=== PATIENT | male | born 1995 | race Two or more races ===

== ENCOUNTER 2017-08-19 23:57 | Emergency (ER) | payer MEDICAID ==
[~2017-08-19] VITALS: Ht 170.2 cm; Wt 68.0 kg
--- NOTE | 2017-08-20 02:30 | NUR ---
PATIENT CAME FROM HOME WITH HIS MOTHER FOR SUTURE REMOVAL . PATIENT AAOX4/AMEX4. NO RESPIRATORY DISTRESS NOTED . RIGHT LOWER QUADRANT OF THE ABDOMEN WITH WOUND .CDI .HEALING WELL DRY WITH 6 SUTURES IN PLACED , PER PATIENT ITS BEEN A WEEK NOW AND SUTURES NEED TO BE REMOVED .
[2017-08-20] MEDS ORDERED: HYDROCO/APAP TAB 5-325MG (02:35)
--- NOTE | 2017-08-20 03:45 | NUR ---
REMOVED SUTURES ABOUT 5 SUTURES FROM THE RIGHT LOWER QUADRANT OF THE ABDOMEN .DONE ASEPTICALLY .ROSLEIA . NO NEED FOR DRESSING PER HENRIETTA CORDOVA .
== END 2017-08-20 04:50 | disposition home or self-care (01) ==
LOC: ER 08-20 00:03
DX: Z48.02 Encounter for removal of sutures (principal); J45.909 Unspecified asthma, uncomplicated; Z79.899 Other long term (current) drug therapy
CPT/HCPCS: A4663

== ENCOUNTER 2017-12-18 17:05 | Emergency (ER) | payer MEDICAID ==
[~2017-12-18] VITALS: Ht 170.2 cm; Wt 68.0 kg
[~2017-12-18 17:05] MED LIST: HYDROCO/APAP TAB 5-325MG
[2017-12-18] MEDS ORDERED: DICYCLOMINE HCL 20 MG/2 ML AMPUL IM SCH (17:30)
[2017-12-18] MEDS ORDERED: ONDANSETRON 4 MG/2 ML VIAL IV ONE ×2 (17:30→19:00)
[2017-12-18] MEDS ORDERED: IV NORMAL SALINE 1000 ML BAG IV ONE (17:30)
[2017-12-18] MEDS ORDERED: ONDANSETRON 4 MG/2 ML VIAL ONE ×2 (17:38→18:51)
[2017-12-18 17:42] LABS: BASOPHILS % (AUTO) 0.3 % (0.0-2.0); HEMATOCRIT 45.1 % (36.7-47.1); HEMOGLOBIN 15.9 g/dL (12.5-16.3); LYMPHOCYTES # (AUTO) 0.3 K/uL (20.0-40.0); LYMPHOCYTES % (AUTO) 3.1 % (20.5-74.5); MEAN CORPUSCULAR HEMOGLOBIN 31.6 uug (23.8-33.4); MEAN CORPUSCULAR HGB CONC 35 g/dL (32.5-36.3); MEAN CORPUSCULAR VOLUME 89.5 fL (73.0-96.2); MONOCYTES # (AUTO) 0.2 K/uL (2.0-10.0); MONOCYTES % (AUTO) 1.7 % (0-11); NEUTROPHILS # (AUTO) 8.4 K/uL (1.8-8.9); NEUTROPHILS % (AUTO) 94.9 % (31.5-64.5); PLATELET COUNT (AUTO) 350 K/uL (152-348); RED BLOOD CELL COUNT(AUTO) 5.04 MIL/uL (4.06-5.63); WHITE BLOOD COUNT (AUTO) 8.9 K/uL (3.6-10.2)
[2017-12-18 17:52] LABS: POTASSIUM 3.2 mmol/L (3.5-5.1)
[2017-12-18 17:58] LABS: BILIRUBIN,DIRECT 0.3 mg/dL (0.0-0.2); BILIRUBIN,TOTAL 1.7 mg/dL (0.2-1.0); TOTAL PROTEIN, SERUM 9.5 g/dL (6.4-8.2)
[2017-12-18] MEDS ORDERED: POTASSIUM CHLORIDE 20 MEQ POWDER PACKET ONE (18:32)
--- NOTE | 2017-12-18 18:52 | NUR ---
Patient discharged to home in stable conditon with mother. Written and verbal after care instructions given. Patient verbalizes understanding of instructions. Stressed follow up or return to ER for worsening s/s.
[2017-12-18] MEDS ORDERED: POTASSIUM CHLORIDE 20 MEQ TAB.PRT.SR PO ONE (19:00)
== END 2017-12-18 18:56 | disposition home or self-care (01) ==
LOC: ER 17:07
DX: R11.10 Vomiting, unspecified (principal); R19.7 Diarrhea, unspecified; R10.9 Unspecified abdominal pain; J45.909 Unspecified asthma, uncomplicated
CPT/HCPCS: 36415; 83690; 85025; A4663; J0500; J2405; J7030

== ENCOUNTER 2018-02-08 14:18 | Emergency (ER) | payer MEDICAID, OTHER ==
[~2018-02-08] VITALS: Ht 172.7 cm; Wt 68.0 kg
[2018-02-08] MEDS ORDERED: IV NORMAL SALINE 1000 ML BAG IV ONE ×2 (14:30→15:30)
[2018-02-08] MEDS ORDERED: ONDANSETRON 4 MG/2 ML VIAL IV ONE (14:30)
[2018-02-08 14:47] LABS: BASOPHILS % (AUTO) 0.2 % (0.0-2.0); EOSINOPHILS % (AUTO) 0.1 % (0.0-7.0); HEMOGLOBIN 13.5 g/dL (12.5-16.3); LYMPHOCYTES # (AUTO) 0.5 K/uL (20.0-40.0); LYMPHOCYTES % (AUTO) 2.7 % (20.5-74.5); MEAN CORPUSCULAR HEMOGLOBIN 31.1 uug (23.8-33.4); MEAN CORPUSCULAR HGB CONC 35 g/dL (32.5-36.3); MEAN CORPUSCULAR VOLUME 90.2 fL (73.0-96.2); MONOCYTES # (AUTO) 0.7 K/uL (2.0-10.0); MONOCYTES % (AUTO) 3.7 % (0-11); NEUTROPHILS # (AUTO) 18.3 K/uL (1.8-8.9); NEUTROPHILS % (AUTO) 93.3 % (31.5-64.5); PLATELET COUNT (AUTO) 334 K/uL (152-348); RED BLOOD CELL COUNT(AUTO) 4.32 MIL/uL (4.06-5.63); WHITE BLOOD COUNT (AUTO) 19.6 K/uL (3.6-10.2)
[2018-02-08] MEDS ORDERED: ONDANSETRON 4 MG/2 ML VIAL ONE ×2 (14:49→15:06)
[2018-02-08 14:51] LABS: CREATININE 1.1 mg/dL (0.6-1.3)
[2018-02-08 14:55] LABS: POTASSIUM 2.8 mmol/L (3.5-5.1)
--- NOTE | 2018-02-08 14:55 | NUR ---
Pt. walked in w/ Mom c/o n/v after eating pizza and [employer], put in room 5A
[2018-02-08 14:57] LABS: BILIRUBIN,DIRECT 0.2 mg/dL (0.0-0.2); BILIRUBIN,TOTAL 0.7 mg/dL (0.2-1.0); TOTAL PROTEIN, SERUM 8.1 g/dL (6.4-8.2)
[2018-02-08] MEDS ORDERED: POTASSIUM CHLORIDE 20 MEQ TAB.PRT.SR PO ONE (15:00)
[2018-02-08] MEDS ORDERED: POTASSIUM CHLORIDE 20 MEQ POWDER PACKET ONE (15:06)
[2018-02-08] MEDS ORDERED: ONDANSETRON IV *ER 4 MG/2 ML VIAL IV ONE (15:15)
[2018-02-08] MEDS ORDERED: METOCLOPRAMIDE HCL 10 MG/2 ML VIAL ONE ×2 (15:51→16:07)
[2018-02-08] MEDS ORDERED: METOCLOPRAMIDE HCL 10 MG/2 ML VIAL IV ONE (16:00)
[2018-02-08] MEDS ORDERED: KETOROLAC TROMETHAMINE 30 MG INJ ONE (16:07)
[2018-02-08] MEDS ORDERED: MORPHINE SULFATE 4 MG/1 ML DISP.SYRIN IV ONE (16:15)
[2018-02-08] MEDS ORDERED: POTASSIUM CHLORIDE 100 ML ONE (16:17)
[2018-02-08] MEDS ORDERED: MORPHINE SULFATE 4 MG/1 ML DISP.SYRIN ONE (16:18)
[2018-02-08] MEDS: POTASSIUM CHLORIDE 50 ML IV SCH ×2 (16:35→17:29)
--- NOTE | 2018-02-08 18:30 | NUR ---
Patient discharged to home in stable conditon. Written and verbal after care instructions given. Patient verbalizes understanding of instructions.
[2018-02-08 18:58] VITALS: BP 130/80
== END 2018-02-08 18:35 | disposition home or self-care (01) ==
LOC: ER 14:18
DX: T62.91XA Toxic effect of unspecified noxious substance eaten as food, accidental (unintentional), initial encounter (principal); J45.909 Unspecified asthma, uncomplicated; Y92.89 Other specified places as the place of occurrence of the external cause
CPT/HCPCS: 36415; 80048; 80076; 83690; 85025; 96361; 96365; 96375; 99285; J1885; J2270; J2405 ×2; J2765 ×2; J3480; A4663; J7030; J7050

== ENCOUNTER 2018-02-10 14:33 | Emergency (ER) | payer MEDICAID ==
[~2018-02-10] VITALS: Ht 167.6 cm; Wt 68.0 kg
[2018-02-10] MEDS ORDERED: HYDROMORPHONE 1 MG/1 ML DISP.SYRIN IV ONE (14:45)
[2018-02-10] MEDS ORDERED: ONDANSETRON 4 MG/2 ML VIAL IV ONE (14:45)
[2018-02-10] MEDS ORDERED: IV NORMAL SALINE 1000 ML BAG IV ONE (14:45)
[2018-02-10] MEDS ORDERED: ONDANSETRON 4 MG/2 ML VIAL ONE ×2 (14:46→15:28)
[2018-02-10] MEDS ORDERED: HYDROMORPHONE 1 MG/1 ML DISP.SYRIN ONE (14:46)
[2018-02-10 15:07] LABS: BASOPHILS % (AUTO) 0.3 % (0.0-2.0); EOSINOPHILS % (AUTO) 0.1 % (0.0-7.0); HEMATOCRIT 39.4 % (36.7-47.1); HEMOGLOBIN 13.9 g/dL (12.5-16.3); LYMPHOCYTES # (AUTO) 0.5 K/uL (20.0-40.0); MEAN CORPUSCULAR HEMOGLOBIN 31.5 uug (23.8-33.4); MEAN CORPUSCULAR HGB CONC 35 g/dL (32.5-36.3); MEAN CORPUSCULAR VOLUME 89.1 fL (73.0-96.2); MONOCYTES # (AUTO) 0.2 K/uL (2.0-10.0); MONOCYTES % (AUTO) 1.9 % (0-11); NEUTROPHILS # (AUTO) 9.2 K/uL (1.8-8.9); NEUTROPHILS % (AUTO) 92.7 % (31.5-64.5); PLATELET COUNT (AUTO) 304 K/uL (152-348); RED BLOOD CELL COUNT(AUTO) 4.42 MIL/uL (4.06-5.63); WHITE BLOOD COUNT (AUTO) 9.9 K/uL (3.6-10.2)
[2018-02-10 15:09] LABS: CREATININE 0.9 mg/dL (0.6-1.3); POTASSIUM 2.9 mmol/L (3.5-5.1)
[2018-02-10 15:15] LABS: BILIRUBIN,DIRECT 0.3 mg/dL (0.0-0.2); BILIRUBIN,TOTAL 1.1 mg/dL (0.2-1.0); TOTAL PROTEIN, SERUM 7.8 g/dL (6.4-8.2)
[2018-02-10] MEDS ORDERED: POTASSIUM CHLORIDE 20 MEQ TAB.PRT.SR ONE (15:28)
[2018-02-10] MEDS ORDERED: ONDANSETRON IV *ER 4 MG/2 ML VIAL IV ONE (15:30)
[2018-02-10] MEDS ORDERED: POTASSIUM CHLORIDE 20 MEQ TAB.PRT.SR PO ONE (15:30)
--- NOTE | 2018-02-10 16:52 | NUR ---
Patient discharged to home in stable conditon. Written and verbal after care instructions given. Patient verbalizes understanding of instructions.pt walks in steady gait. pt says feels better. pt accompanied by mother.
[2018-02-10 16:53] VITALS: BP 146/87
== END 2018-02-10 16:54 | disposition home or self-care (01) ==
LOC: ER 14:33
DX: K52.9 Noninfective gastroenteritis and colitis, unspecified (principal); E87.6 Hypokalemia; J45.909 Unspecified asthma, uncomplicated
CPT/HCPCS: 36415; 74176; 80048; 80076; 83690; 85025; 96361; 96374; 96375; 96376; 99285; J1170; J2405 ×2; A4663; J7030

== ENCOUNTER 2018-02-12 13:06 | Emergency (ER) | payer MEDICAID ==
[~2018-02-12] VITALS: Ht 167.6 cm; Wt 68.0 kg
--- NOTE | 2018-02-12 13:23 | NUR ---
PATIENT WAITING IN ROOM C/O N/V AND DIARRHEA X5DAYS WITH WORSENING PAIN.
--- NOTE | 2018-02-12 13:31 | NUR ---
DOCTOR LOPEZ IN THE ROOM TO SEE PATIENT.
[2018-02-12] MEDS ORDERED: CAPSAICIN 0.025% CREAM 56.6 GM TUBE TP ONE (13:41)
[2018-02-12] MEDS ORDERED: IV NORMAL SALINE 1000 ML BAG IV ONE (13:45)
[2018-02-12] MEDS ORDERED: KETOROLAC TROMETHAMINE 30 MG INJ IVP ONE (13:45)
[2018-02-12] MEDS ORDERED: MISCELLANEOUS MED XX ONE (13:45)
[2018-02-12] MEDS ORDERED: ONDANSETRON 4 MG/2 ML VIAL IV ONE (13:45)
[2018-02-12] MEDS ORDERED: KETOROLAC TROMETHAMINE 30 MG INJ ONE (13:49)
[2018-02-12] MEDS ORDERED: ONDANSETRON 4 MG/2 ML VIAL ONE (13:49)
[2018-02-12 14:01] LABS: BASOPHILS % (AUTO) 0.4 % (0.0-2.0); HEMATOCRIT 40.7 % (36.7-47.1); HEMOGLOBIN 14.5 g/dL (12.5-16.3); LYMPHOCYTES # (AUTO) 0.5 K/uL (20.0-40.0); LYMPHOCYTES % (AUTO) 5.8 % (20.5-74.5); MEAN CORPUSCULAR HEMOGLOBIN 31.9 uug (23.8-33.4); MEAN CORPUSCULAR HGB CONC 36 g/dL (32.5-36.3); MEAN CORPUSCULAR VOLUME 89.5 fL (73.0-96.2); MONOCYTES # (AUTO) 0.1 K/uL (2.0-10.0); MONOCYTES % (AUTO) 1.5 % (0-11); NEUTROPHILS # (AUTO) 7.4 K/uL (1.8-8.9); NEUTROPHILS % (AUTO) 92.3 % (31.5-64.5); PLATELET COUNT (AUTO) 314 K/uL (152-348); RED BLOOD CELL COUNT(AUTO) 4.54 MIL/uL (4.06-5.63)
[2018-02-12 14:13] LABS: BILIRUBIN,DIRECT 0.2 mg/dL (0.0-0.2); CREATININE 0.9 mg/dL (0.6-1.3); POTASSIUM 3.3 mmol/L (3.5-5.1); TOTAL PROTEIN, SERUM 8.1 g/dL (6.4-8.2)
--- NOTE | 2018-02-12 14:16 | NUR ---
PATIENT C/O OF BURNING SENSATION, STATES IT IS INTOLERABLE. PATIENT REMOVED CREAM AND THE MOTHER AT BEDSIDE WAS FOUND RUBBING HAND SANTIZER TO THE ABDOMEN.
--- NOTE | 2018-02-12 15:51 | NUR ---
PATIENT GIVEN DISCHARGE INSTRUCTION AND PRESCRIPTIONS. REFER TO SPECIALIST ALSO GIVEN WITH DISCHARGE INSTRUCTIONS
== END 2018-02-12 15:53 | disposition home or self-care (01) ==
LOC: ER 13:06
DX: R10.84 Generalized abdominal pain (principal); R11.2 Nausea with vomiting, unspecified; J45.909 Unspecified asthma, uncomplicated; F12.10 Cannabis abuse, uncomplicated
CPT/HCPCS: 76705; 80048; 80076; 83690; 85025; 96361; 96374; 96375; 99285; J1885; J2405; A4663; A9150; J7030

== ENCOUNTER 2018-03-10 17:59 | Emergency (ER) | payer MEDICAID ==
[~2018-03-10] VITALS: Ht 170.2 cm; Wt 68.0 kg
[2018-03-10] MEDS ORDERED: MORPHINE SULFATE 2 MG/1 ML DISP.SYRIN IV ONE (18:45)
[2018-03-10] MEDS ORDERED: ONDANSETRON 4 MG/2 ML VIAL IV ONE (18:45)
[2018-03-10] MEDS ORDERED: IV NORMAL SALINE 1000 ML BAG IV ONE (18:45)
--- NOTE | 2018-03-10 18:53 | NUR ---
PT IS IN ROOM #2B. DR ORDOÑEZ EVALUATED THE PT.
[2018-03-10] MEDS ORDERED: ONDANSETRON 4 MG/2 ML VIAL ONE (18:58)
[2018-03-10] MEDS ORDERED: MORPHINE SULFATE 2 MG/1 ML DISP.SYRIN ONE (18:58)
[2018-03-10 19:02] LABS: BASOPHILS % (AUTO) 0.2 % (0.0-2.0); HEMATOCRIT 41.7 % (36.7-47.1); HEMOGLOBIN 14.3 g/dL (12.5-16.3); LYMPHOCYTES # (AUTO) 0.2 K/uL (20.0-40.0); LYMPHOCYTES % (AUTO) 1.9 % (20.5-74.5); MEAN CORPUSCULAR HEMOGLOBIN 31.2 uug (23.8-33.4); MEAN CORPUSCULAR HGB CONC 34 g/dL (32.5-36.3); MEAN CORPUSCULAR VOLUME 91.2 fL (73.0-96.2); MONOCYTES # (AUTO) 0.2 K/uL (2.0-10.0); MONOCYTES % (AUTO) 1.8 % (0-11); NEUTROPHILS # (AUTO) 11.7 K/uL (1.8-8.9); NEUTROPHILS % (AUTO) 96.1 % (31.5-64.5); PLATELET COUNT (AUTO) 316 K/uL (152-348); RED BLOOD CELL COUNT(AUTO) 4.57 MIL/uL (4.06-5.63); WHITE BLOOD COUNT (AUTO) 12.1 K/uL (3.6-10.2)
[2018-03-10 19:10] LABS: CREATININE 0.9 mg/dL (0.6-1.3); POTASSIUM 3.7 mmol/L (3.5-5.1)
[2018-03-10 19:15] LABS: BILIRUBIN,DIRECT 0.2 mg/dL (0.0-0.2); BILIRUBIN,TOTAL 0.7 mg/dL (0.2-1.0); TOTAL PROTEIN, SERUM 8.8 g/dL (6.4-8.2)
--- NOTE | 2018-03-10 19:31 | NUR ---
PATIENT STATES FEELS A LOT BETTER THAN COMING IN [place]. MD NOTIFIFED, PO CHALLENGE DONE. TOLERATED LIQUIDS WELL.
[2018-03-10 20:12] VITALS: BP 139/82
--- NOTE | 2018-03-10 20:12 | NUR ---
Patient discharged to home in stable conditon. Written and verbal after care instructions given. Patient verbalizes understanding of instructions. PATIENT LEFT WITH STABLE GAIT.
== END 2018-03-10 20:13 | disposition home or self-care (01) ==
LOC: ER 18:03
DX: K52.9 Noninfective gastroenteritis and colitis, unspecified (principal); J45.909 Unspecified asthma, uncomplicated
CPT/HCPCS: 36415; 80048; 80076; 83690; 85025; 96361; 96374; 96375; 99283; J2270; J2405; A4663; J7030

== ENCOUNTER 2018-03-12 02:43 | Emergency (ER) | payer MEDICAID ==
[~2018-03-12] VITALS: Ht 170.2 cm; Wt 68.0 kg
[2018-03-12] MEDS ORDERED: ONDANSETRON 4 MG/2 ML VIAL ONE (03:14)
[2018-03-12] MEDS: ONDANSETRON 4 MG/2 ML VIAL IV ONE (03:20)
[2018-03-12] MEDS: IV NORMAL SALINE 1000 ML BAG IV ONE (03:20)
--- NOTE | 2018-03-12 03:20 | NUR ---
Seen by . Saline lock placed. New orders noted. Zofran administered. IV fluids initiatedd
[2018-03-12 03:30] LABS: POTASSIUM 3.5 mmol/L (3.5-5.1)
[2018-03-12 03:32] LABS: BASOPHILS % (AUTO) 0.4 % (0.0-2.0); EOSINOPHILS % (AUTO) 0.2 % (0.0-7.0); HEMATOCRIT 40.3 % (36.7-47.1); HEMOGLOBIN 14.5 g/dL (12.5-16.3); LYMPHOCYTES # (AUTO) 1.2 K/uL (20.0-40.0); LYMPHOCYTES % (AUTO) 15.8 % (20.5-74.5); MEAN CORPUSCULAR HEMOGLOBIN 31.9 uug (23.8-33.4); MEAN CORPUSCULAR HGB CONC 36 g/dL (32.5-36.3); MEAN CORPUSCULAR VOLUME 88.8 fL (73.0-96.2); MONOCYTES # (AUTO) 0.5 K/uL (2.0-10.0); MONOCYTES % (AUTO) 6.4 % (0-11); NEUTROPHILS # (AUTO) 5.7 K/uL (1.8-8.9); NEUTROPHILS % (AUTO) 77.2 % (31.5-64.5); PLATELET COUNT (AUTO) 308 K/uL (152-348); RED BLOOD CELL COUNT(AUTO) 4.54 MIL/uL (4.06-5.63); WHITE BLOOD COUNT (AUTO) 7.4 K/uL (3.6-10.2)
[2018-03-12 03:36] LABS: BILIRUBIN,DIRECT 0.3 mg/dL (0.0-0.2); BILIRUBIN,TOTAL 1.1 mg/dL (0.2-1.0); TOTAL PROTEIN, SERUM 8.5 g/dL (6.4-8.2)
[2018-03-12] MEDS ORDERED: KETOROLAC TROMETHAMINE 30 MG INJ ONE (03:59)
[2018-03-12] MEDS: KETOROLAC TROMETHAMINE 30 MG INJ IVP ONE (04:09)
[2018-03-12 04:21] VITALS: BP 144/83
== END 2018-03-12 04:30 | disposition home or self-care (01) ==
LOC: ER 02:45
DX: R10.84 Generalized abdominal pain (principal); R11.10 Vomiting, unspecified; R19.7 Diarrhea, unspecified; J45.909 Unspecified asthma, uncomplicated
CPT/HCPCS: 36415; 80048; 80076; 85025; 96361; 96374; 96375; 99283; J1885; J2405; A4663; J7030

== ENCOUNTER 2018-05-25 16:51 | Emergency (ER) | payer MEDICAID ==
[~2018-05-25] VITALS: Ht 170.2 cm; Wt 68.0 kg
[2018-05-25] MEDS: IV NORMAL SALINE 1000 ML BAG IV ONE (17:32)
[2018-05-25] MEDS ORDERED: ONDANSETRON 4 MG/2 ML VIAL ONE ×2 (17:34→17:38)
[2018-05-25] MEDS ORDERED: PANTOPRAZOLE SODIUM 40 MG VIAL ONE (17:35)
[2018-05-25] MEDS: PANTOPRAZOLE SODIUM 40 MG VIAL IV ONE (17:37)
[2018-05-25] MEDS: ONDANSETRON 4 MG/2 ML VIAL IV ONE (17:37)
--- NOTE | 2018-05-25 18:12 | NUR ---
Patient discharged to home in stable conditon. Written and verbal after care instructions given. Patient verbalizes understanding of instructions.pt walks in steady gait. pt denies nausea or pain at this point. pt says feels better. pt accomanied by mother.
[2018-05-25 18:14] VITALS: BP 131/81
== END 2018-05-25 18:14 | disposition home or self-care (01) ==
LOC: ER 16:51
DX: A08.4 Viral intestinal infection, unspecified (principal); J45.909 Unspecified asthma, uncomplicated
CPT/HCPCS: 96361; 96374; 96375; 99283; C9113; J2405 ×2; A4663; J7030

== ENCOUNTER 2018-08-22 17:35 | Emergency (ER) | payer MEDICAID ==
[~2018-08-22] VITALS: Ht 170.2 cm; Wt 68.0 kg
[2018-08-22] MEDS ORDERED: IV NORMAL SALINE 1000 ML BAG IV ONE ×2 (18:00→20:30)
[2018-08-22] MEDS ORDERED: ONDANSETRON 4 MG/2 ML VIAL IV ONE (18:00)
[2018-08-22 18:06] LABS: BASOPHILS # (AUTO) 0.1 K/uL (0.0-8.0); BASOPHILS % (AUTO) 0.4 % (0.0-2.0); EOSINOPHILS % (AUTO) 0.1 % (0.0-7.0); HEMATOCRIT 42.8 % (36.7-47.1); HEMOGLOBIN 14.5 g/dL (12.5-16.3); LYMPHOCYTES # (AUTO) 1.5 K/uL (20.0-40.0); LYMPHOCYTES % (AUTO) 9.1 % (20.5-74.5); MEAN CORPUSCULAR HEMOGLOBIN 30.2 uug (23.8-33.4); MEAN CORPUSCULAR HGB CONC 34 g/dL (32.5-36.3); MONOCYTES # (AUTO) 0.6 K/uL (2.0-10.0); MONOCYTES % (AUTO) 3.5 % (0-11); NEUTROPHILS # (AUTO) 14.6 K/uL (1.8-8.9); NEUTROPHILS % (AUTO) 86.9 % (31.5-64.5); PLATELET COUNT (AUTO) 368 K/uL (152-348); RED BLOOD CELL COUNT(AUTO) 4.81 MIL/uL (4.06-5.63); WHITE BLOOD COUNT (AUTO) 16.9 K/uL (3.6-10.2)
[2018-08-22 18:14] LABS: POTASSIUM 3.2 mmol/L (3.5-5.1)
[2018-08-22 18:20] LABS: BILIRUBIN,DIRECT 0.2 mg/dL (0.0-0.2); BILIRUBIN,TOTAL 0.7 mg/dL (0.2-1.0); TOTAL PROTEIN, SERUM 8.8 g/dL (6.4-8.2)
[2018-08-22] MEDS ORDERED: ONDANSETRON 4 MG/2 ML VIAL ONE (18:33)
[2018-08-22] MEDS ORDERED: PANTOPRAZOLE SODIUM 40 MG VIAL IV ONE (18:45)
[2018-08-22] MEDS ORDERED: METOCLOPRAMIDE HCL 10 MG/2 ML VIAL IV ONE ×2 (18:45→19:45)
[2018-08-22] MEDS ORDERED: PANTOPRAZOLE SODIUM 40 MG VIAL ONE (18:49)
[2018-08-22] MEDS ORDERED: METOCLOPRAMIDE HCL 10 MG/2 ML VIAL ONE ×2 (18:49→20:05)
--- NOTE | 2018-08-22 18:54 | NUR ---
PATIENT WAS SEEN BY MD. HE HAS VOMITED 3 TIMES DURING STAY IN ER. MEDICATION GIVEN ORDERED.
--- NOTE | 2018-08-22 19:14 | NUR ---
HAND OFF REPORT GIVEN TO KEN MAURICIO
--- NOTE | 2018-08-22 19:19 | NUR ---
Received report from Delmy MAURICIO, assumed care of pt.,
[2018-08-22] MEDS ORDERED: PROCHLORPERAZINE EDISYLATE 10 MG/2 ML VIAL IV ONE (20:45)
[2018-08-22] MEDS ORDERED: diphenhydrAMINE 50 MG/1 ML VIAL IV ONE (20:45)
[2018-08-22] MEDS ORDERED: PROCHLORPERAZINE EDISYLATE 10 MG/2 ML VIAL ONE (20:56)
[2018-08-22] MEDS ORDERED: diphenhydrAMINE 50 MG/1 ML VIAL ONE (20:56)
--- NOTE | 2018-08-22 21:17 | NUR ---
Pt. up to use restroom, ambulates w/ steady gait,
--- NOTE | 2018-08-22 21:30 | NUR ---
Pt. given 5cc applejuice/water mix per Dr. Doss,
--- NOTE | 2018-08-22 21:55 | NUR ---
Patient discharged to home in stable conditon. Written and verbal after care instructions given. Patient verbalizes understanding of instructions. Pt. d/c w/ prescription per MD order, d/c papers signed, all belongings w/ pt., ID band/IV removed, ambulated off unit w/ steady gait, NAD
== END 2018-08-22 21:59 | disposition home or self-care (01) ==
LOC: ER 17:39
DX: R11.10 Vomiting, unspecified (principal); R10.9 Unspecified abdominal pain; E87.6 Hypokalemia; J45.909 Unspecified asthma, uncomplicated
CPT/HCPCS: 36415; 80048; 80076; 83690; 85025; 96361; 96374; 96375; 96376; 99283; C9113; J0780; J1200; J2405; J2765 ×2; A4663; J7030

== ENCOUNTER 2019-01-13 13:40 | Emergency (ER) | payer MEDICAID ==
[~2019-01-13] VITALS: Ht 167.6 cm; Wt 70.3 kg
[2019-01-13] MEDS ORDERED: ONDANSETRON 4 MG/2 ML VIAL ONE ×2 (14:37→15:23)
[2019-01-13] MEDS ORDERED: ONDA4TAB5 PO (14:41)
[2019-01-13] MEDS ORDERED: ONDANSETRON 4 MG/2 ML VIAL IV ONE ×2 (14:45→15:15)
[2019-01-13] MEDS ORDERED: IV NORMAL SALINE 1000 ML BAG IV ONE (14:45)
[2019-01-13 14:47] LABS: BASOPHILS # (AUTO) 0.1 K/uL (0.0-8.0); BASOPHILS % (AUTO) 0.6 % (0.0-2.0); EOSINOPHILS # (AUTO) 0.1 K/uL (0.0-0.7); EOSINOPHILS % (AUTO) 0.5 % (0.0-7.0); HEMATOCRIT 45.2 % (36.7-47.1); HEMOGLOBIN 14.9 g/dL (12.5-16.3); LYMPHOCYTES # (AUTO) 1.8 K/uL (20.0-40.0); LYMPHOCYTES % (AUTO) 10.8 % (20.5-51.5); MEAN CORPUSCULAR HEMOGLOBIN 30.4 uug (23.8-33.4); MEAN CORPUSCULAR HGB CONC 33 g/dL (32.5-36.3); MONOCYTES # (AUTO) 0.6 K/uL (2.0-10.0); MONOCYTES % (AUTO) 3.8 % (0.0-11.0); NEUTROPHILS # (AUTO) 14.3 K/uL (1.8-8.9); NEUTROPHILS % (AUTO) 84.3 % (38.5-71.5); PLATELET COUNT (AUTO) 379 K/uL (152-348); RED BLOOD CELL COUNT(AUTO) 4.91 MIL/uL (4.06-5.63)
[2019-01-13 14:58] LABS: POTASSIUM 3.2 mmol/L (3.5-5.1)
[2019-01-13 15:04] LABS: BILIRUBIN,DIRECT 0.2 mg/dL (0.0-0.2); BILIRUBIN,TOTAL 0.9 mg/dL (0.2-1.0); TOTAL PROTEIN, SERUM 8.7 g/dL (6.4-8.2)
[2019-01-13] MEDS ORDERED: PANTOPRAZOLE SODIUM 40 MG VIAL IV ONE (15:15)
[2019-01-13] MEDS ORDERED: HYDROMORPHONE 1 MG/1 ML DISP.SYRIN ONE (15:15)
[2019-01-13] MEDS ORDERED: HYDROMORPHONE 1 MG/1 ML DISP.SYRIN IV ONE (15:15)
[2019-01-13] MEDS ORDERED: PANTOPRAZOLE SODIUM 40 MG VIAL ONE (15:26)
--- NOTE | 2019-01-13 16:27 | NUR ---
Patient discharged to home in stable conditon. Written and verbal after care instructions given. Patient verbalizes understanding of instructions.pt walks i nsteady gait. pt not driving.
[2019-01-13 16:29] VITALS: BP 111/52
== END 2019-01-13 16:29 | disposition home or self-care (01) ==
LOC: ER 13:40
DX: A08.4 Viral intestinal infection, unspecified (principal); J45.909 Unspecified asthma, uncomplicated; Z79.899 Other long term (current) drug therapy
CPT/HCPCS: 36415; 71045; 80048; 80076; 83690; 85025; 85730; 96361; 96374; 96375; 96376; 99284; C9113; J1170; J2405 ×2; A4663; J7030

== ENCOUNTER 2019-02-13 13:05 | Emergency (ER) | payer MEDICAID ==
[~2019-02-13] VITALS: Ht 167.6 cm; Wt 72.6 kg
[~2019-02-13 13:05] MED LIST changes: -HYDROCO/APAP TAB 5-325MG; +ONDA4TAB5 PO
--- NOTE | 2019-02-13 13:22 | NUR ---
NINA SANTOS AT BEDSIDE FOR MSE.
[2019-02-13] MEDS ORDERED: ONDANSETRON 4 MG/2 ML VIAL ONE (13:33)
[2019-02-13] MEDS: IV NORMAL SALINE 1000 ML BAG IV ONE (13:33)
[2019-02-13] MEDS ORDERED: FAMOTIDINE. 20 MG/2 ML VIAL IV ONE (13:33)
[2019-02-13] MEDS: ONDANSETRON 4 MG/2 ML VIAL IV ONE (13:34)
[2019-02-13] MEDS: FAMOTIDINE. 20 MG/2 ML VIAL IV ONE (13:37)
[2019-02-13 13:44] LABS: BASOPHILS % (AUTO) 0.3 % (0.0-2.0); HEMATOCRIT 42.5 % (36.7-47.1); HEMOGLOBIN 14.6 g/dL (12.5-16.3); LYMPHOCYTES # (AUTO) 0.5 K/uL (20.0-40.0); LYMPHOCYTES % (AUTO) 5.6 % (20.5-51.5); MEAN CORPUSCULAR HEMOGLOBIN 31.2 uug (23.8-33.4); MEAN CORPUSCULAR HGB CONC 34 g/dL (32.5-36.3); MEAN CORPUSCULAR VOLUME 90.8 fL (73.0-96.2); MONOCYTES # (AUTO) 0.2 K/uL (2.0-10.0); MONOCYTES % (AUTO) 2.2 % (0.0-11.0); NEUTROPHILS # (AUTO) 7.7 K/uL (1.8-8.9); NEUTROPHILS % (AUTO) 91.9 % (38.5-71.5); PLATELET COUNT (AUTO) 307 K/uL (152-348); RED BLOOD CELL COUNT(AUTO) 4.67 MIL/uL (4.06-5.63); WHITE BLOOD COUNT (AUTO) 8.4 K/uL (3.6-10.2)
[2019-02-13 14:03] LABS: CREATININE 1.1 mg/dL (0.6-1.3)
[2019-02-13 14:04] LABS: POTASSIUM 2.7 mmol/L (3.5-5.1)
[2019-02-13 14:07] LABS: BILIRUBIN,DIRECT 0.3 mg/dL (0.0-0.2); TOTAL PROTEIN, SERUM 8.2 g/dL (6.4-8.2)
[2019-02-13] MEDS ORDERED: POTASSIUM CHLORIDE 20 MEQ TAB.PRT.SR ONE (14:16)
[2019-02-13] MEDS: POTASSIUM CHLORIDE 20 MEQ TAB.PRT.SR PO ONE (14:19)
[2019-02-13] MEDS ORDERED: IV NS + KCL 40 MEQ 1000 ML BAG IV ONE (14:30)
--- NOTE | 2019-02-13 14:33 | NUR ---
PT VOMITED AND WAS UNABLE TO HOLD DOWN THE POTASSIUM CHLORIDE PO TABLETS. ER NOTIFIED.
[2019-02-13] MEDS: POTASSIUM CHLORIDE 40 MEQ in IV NS 1000 ML 1,000 ML IV ONE (15:04)
[2019-02-13] MEDS ORDERED: METOCLOPRAMIDE HCL 10 MG/2 ML VIAL ONE (15:05)
[2019-02-13] MEDS: METOCLOPRAMIDE HCL 10 MG/2 ML VIAL IV ONE (15:09)
--- NOTE | 2019-02-13 19:11 | NUR ---
Patient discharged to home in stable conditon. Written and verbal after care instructions given. Patient verbalizes understanding of instructions. ALL BELONGINGS W/ PT. PT SELF-AMBULATED W/O DIFFICULTY. 20G IV ACCESS IN LAC REMOVED PRIOR TO D/C - INNER CANNULA INTACT.
[2019-02-13 19:12] VITALS: BP 121/72
== END 2019-02-13 19:13 | disposition home or self-care (01) ==
LOC: ER 13:05
DX: K29.70 Gastritis, unspecified, without bleeding (principal); J45.909 Unspecified asthma, uncomplicated; Z79.899 Other long term (current) drug therapy
CPT/HCPCS: 36415; 80048; 80076; 83690; 85025; 96361; 96365; 96366; 96375; 99283; J2405; J2765; J3490; A4663; J3480; J7030

== ENCOUNTER 2020-11-11 13:26 | Emergency (ER) | payer MEDICAID ==
[~2020-11-11] VITALS: Ht 170.2 cm; Wt 72.6 kg
--- NOTE | 2020-11-11 14:46 | NUR ---
at bedside for assessment
[2020-11-11] MEDS ORDERED: IV NORMAL SALINE 1000 ML BAG IV ONE (15:00)
[2020-11-11] MEDS ORDERED: HALOPERIDOL LACTATE 5 MG/1 ML VIAL IV ONE (15:00)
[2020-11-11] MEDS ORDERED: diphenhydrAMINE 50 MG/1 ML VIAL IV ONE (15:00)
[2020-11-11] MEDS ORDERED: HALOPERIDOL LACTATE 5 MG/1 ML VIAL ONE (15:08)
[2020-11-11] MEDS ORDERED: diphenhydrAMINE 50 MG/1 ML VIAL ONE (15:08)
--- NOTE | 2020-11-11 15:10 | NUR ---
Ultrasound noted at bedside for US of gallbladder
[2020-11-11] MEDS ORDERED: DIATR MEGLU/DIATRIZOATE SODIUM 30 ML BOTTLE ONE (15:20)
[2020-11-11 15:34] LABS: HEMATOCRIT 43.9 % (36.7-47.1); MEAN CORPUSCULAR HEMOGLOBIN 30.3 uug (23.8-33.4); MEAN CORPUSCULAR VOLUME 91.9 fL (73.0-96.2); PLATELET COUNT (AUTO) 363 K/uL (152-348)
[2020-11-11 15:40] LABS: POTASSIUM 3.4 mmol/L (3.5-5.1)
[2020-11-11 15:46] LABS: BILIRUBIN,DIRECT 0.1 mg/dL (0.0-0.2); BILIRUBIN,TOTAL 0.6 mg/dL (0.2-1.0); TOTAL PROTEIN, SERUM 8.5 g/dL (6.4-8.2)
[2020-11-11] MEDS ORDERED: IOHEXOL 300MG/ML 100 ML INFUS..BTL ONE (16:26)
[2020-11-11] MEDS ORDERED: SWABABLE VALVE TRANSFER SET EA MC ONE (16:26)
[2020-11-11] MEDS ORDERED: IV NORMAL SALINE 250 ML IV ONE (16:27)
--- NOTE | 2020-11-11 17:10 | NUR ---
Patient noted resting, no signs of ascute distress noted, mother noted at bedside
[2020-11-11 17:24] LABS: *BILIRUBIN,URIN NEGATIVE (NEGATIVE); *BLOOD, URINE NEGATIVE (NEGATIVE); *CLARITY,URINE CLEAR (CLEAR); *COLOR,URINE YELLOW (YELLOW); *KETONES,URINE NEGATIVE (NEGATIVE); *UROBILINOGEN,URINE 0.2 E.U./dl (NORMAL); LEUKOCYTE ESTERASE ,URINE NEGATIVE (NEGATIVE); NITRITE, URINE NEGATIVE (NEGATIVE); PH,URINE 7.5 (5.0-8.0); UGLUCOSE 1+ (NEGATIVE)
--- NOTE | 2020-11-11 19:32 | NUR ---
Recieved report from LULY Avila. Pt. resting in bed, no signs of distress. Pt. states nausea has improved, pt says he has mild abdominal soreness from earlier vomiting episodes. Pts mother is at the bedside. Waiting on insurance to determine if pt. can be admitted here or if he needs to be transferred. Will continue to monitor.
[2020-11-11 20:52] VITALS: BP 114/59
== END 2020-11-11 20:30 | disposition left against medical advice (07) ==
LOC: ER 13:26
DX: R10.9 Unspecified abdominal pain (principal); R11.2 Nausea with vomiting, unspecified; J45.909 Unspecified asthma, uncomplicated; E87.6 Hypokalemia; Z20.822 Contact with and (suspected) exposure to COVID-19
CPT/HCPCS: 36415; 74177; 76705; 80048; 80076; 81003; 83690; 84484; 85025; 87426; 93005; 96361; 96374; 96375; 99285; J1200; J1630; Q9967; 70030-TC; A4663; J7030; J7050; Q9963

== ENCOUNTER 2024-05-16 22:57 | Emergency (ER) | payer MEDICAID ==
[~2024-05-16] VITALS: Ht 167.6 cm; Wt 74.8 kg
[2024-05-17] MEDS ORDERED: ONDANSETRON 4 MG/2 ML VIAL ONE ×2 (00:40→03:02)
[2024-05-17] MEDS ORDERED: KETOROLAC TROMETHAMINE 30 MG INJ ONE (00:40)
[2024-05-17] MEDS: KETOROLAC TROMETHAMINE 30 MG INJ IVP ONE (00:43)
[2024-05-17] MEDS: ONDANSETRON 4 MG/2 ML VIAL IV ONE ×2 (00:44→03:04)
[2024-05-17 00:49] LABS: *BILIRUBIN,URIN NEGATIVE (NEGATIVE); *BLOOD, URINE NEGATIVE (NEGATIVE); *CLARITY,URINE CLEAR (CLEAR); *COLOR,URINE YELLOW (YELLOW); *KETONES,URINE 2+ (NEGATIVE); *PROTEIN,URINE 1+ (NEGATIVE); *UROBILINOGEN,URINE 0.2 E.U./dl (NORMAL); BASOPHILS % (AUTO) 0.3 % (0.0-2.0); DIFFERENTIAL COMMENT 1; HEMATOCRIT 47.2 % (36.7-47.1); HEMOGLOBIN 16.3 g/dL (12.5-16.3); LEUKOCYTE ESTERASE ,URINE NEGATIVE (NEGATIVE); LYMPHOCYTES # (AUTO) 1.1 K/uL (0.8-4.8); LYMPHOCYTES % (AUTO) 8.4 % (20.5-51.5); MEAN CORPUSCULAR HEMOGLOBIN 30.9 uug (23.8-33.4); MEAN CORPUSCULAR HGB CONC 35 g/dL (32.5-36.3); MEAN CORPUSCULAR VOLUME 89.2 fL (73.0-96.2); MONOCYTES # (AUTO) 0.9 K/uL (0.1-1.30); MONOCYTES % (AUTO) 6.8 % (0.0-11.0); NEUTROPHILS # (AUTO) 11.3 K/uL (1.8-8.9); NEUTROPHILS % (AUTO) 84.5 % (38.5-71.5); NITRITE, URINE NEGATIVE (NEGATIVE); PLATELET COUNT (AUTO) 365 K/uL (152-348); RED BLOOD CELL COUNT(AUTO) 5.29 MIL/uL (4.06-5.63); RED CELL DISTRIBUTION WIDTH 13.4 % (12.1-16.2); UGLUCOSE NEGATIVE (NEGATIVE); WHITE BLOOD COUNT (AUTO) 13.4 K/uL (3.6-10.2)
[2024-05-17 00:55] LABS: BACTERIA,URINE NONE SEEN /HPF (NONE SEEN); MUCUS,URINE FEW /LPF (0-FEW); RBC,URINE NONE SEEN /HPF (0-3); SQUAMOUS EPITHELIAL CELL,UR NONE SEEN /HPF (NONE SEEN); WBC,URINE 0-3 /HPF (0-3)
[2024-05-17 00:59] LABS: *AMPHETAMINE, URINE NEGATIVE (NEGATIVE); *BARBITURATE, URINE NEGATIVE (NEGATIVE); *BENZODIAZEPINE, URINE NEGATIVE (NEGATIVE); *CANNABINOID, URINE POSITIVE (NEGATIVE); *COCCAINE, URINE NEGATIVE (NEGATIVE); *OPIATE, URINE NEGATIVE (NEGATIVE); *PHENCYCLIDINE SCREEN,URINE NEGATIVE (NEGATIVE); FENTANYL, URINE NEGATIVE (NEGATIVE)
[2024-05-17 01:01] LABS: CALCIUM 9.7 mg/dL (8.5-10.1); CREATININE 0.9 mg/dL (0.6-1.3); POTASSIUM 3.5 mmol/L (3.5-5.1)
[2024-05-17 01:08] LABS: ALBUMIN 5.4 g/dL (3.4-5.0); TOTAL PROTEIN, SERUM 9.3 g/dL (6.4-8.2)
[2024-05-17] MEDS ORDERED: ONDA4TAB5 PO (02:16)
[2024-05-17] MEDS ORDERED: OMEP20TA20 PO (02:16)
[2024-05-17] MEDS: IV NORMAL SALINE 100 ML BAG IV ONE (03:00)
[2024-05-17] MEDS ORDERED: PANTOPRAZOLE SODIUM 40 MG VIAL ONE (07:36)
[2024-05-17] MEDS: PANTOPRAZOLE SODIUM 40 MG VIAL IV ONE (07:45)
[2024-05-17 10:38] VITALS: BP 112/78; TEMP 97.8; O2SAT 99
== END 2024-05-17 10:40 | disposition home or self-care (01) ==
LOC: ER 22:57
DX: R10.13 Epigastric pain (principal); R11.2 Nausea with vomiting, unspecified; J45.909 Unspecified asthma, uncomplicated; Z79.899 Other long term (current) drug therapy; Z87.19 Personal history of other diseases of the digestive system; Z88.7 Allergy status to serum and vaccine
CPT/HCPCS: 99285; 74176; 96374; 96375; 96361; 80053; 83690; 85025; 36415; 96376; 80307; 81001; J1885; J2405 ×2; J2470; J7040; A4606; A4663